=== PATIENT | male | born 1965 | race Caucasian/White ===

== ENCOUNTER 2016-07-27 15:35 | Emergency (ER) | payer SELFPAY ==
[~2016-07-27] VITALS: Ht 175.3 cm; Wt 93.0 kg
[2016-07-27 15:42] VITALS: BP 171/112
[2016-07-27] MEDS ORDERED: LISINOPRIL 10MG TABLET PO ONE (16:15)
[2016-07-27] MEDS ORDERED: ATENOLOL 25MG TABLET PO ONE (16:15)
== END 2016-07-27 18:17 | disposition home or self-care (01) ==
LOC: ER 17:22
DX: I10 Essential (primary) hypertension (principal); R51 Headache; Z76.0 Encounter for issue of repeat prescription
CPT/HCPCS: 99283